=== PATIENT | female | born 1950 | race Caucasian/White ===

== ENCOUNTER 2020-11-12 11:28 | Outpatient (CLI) | payer MEDICARE, SELFPAY ==
[2020-11-12 11:36] VITALS: BP 92/61; PULSE 75; RESP 16; TEMP 36.8; O2SAT 95
[2020-11-12 12:25] VITALS: BP 81/53; PULSE 69; O2SAT 98
[2020-11-12 12:59] VITALS: BP 88/59; PULSE 67; TEMP 36.8; O2SAT 99
== END 2020-11-12 11:29 | disposition home or self-care (01) ==
LOC: OPS 11:32
PROVIDERS: Visit Provider Nurse Practitioner Family
DX: U07.1 COVID-19 (principal)
CPT/HCPCS: 87426; 96365

== ENCOUNTER → 2022-08-22 09:23 | Outpatient (BNVA) | payer MEDICARE, SELFPAY | PROVIDERS: PCP Family Medicine; Referring Provider Psychiatry & Neurology Neurology; Visit Provider Psychiatry & Neurology Neurology | DX: R51.9 Headache, unspecified (principal); M25.511 Pain in right shoulder; R25.2 Cramp and spasm; R29.898 Other symptoms and signs involving the musculoskeletal system; H53.40 Unspecified visual field defects | CPT/HCPCS: 99203 ==

== ENCOUNTER → 2022-08-29 10:04 | Outpatient (BNVA) | payer MEDICARE, SELFPAY | PROVIDERS: PCP Family Medicine; Visit Provider Psychiatry & Neurology Neurology | DX: R56.9 Unspecified convulsions (principal); R51.9 Headache, unspecified; F03.90 Unspecified dementia, unspecified severity, without behavioral disturbance, psychotic disturbance, mood disturbance, and anxiety | CPT/HCPCS: 36415; 80076; 80164; 85025; 95812; 95813 ==

== ENCOUNTER → 2022-10-17 14:24 | Outpatient (BNVA) | payer MEDICARE, SELFPAY | PROVIDERS: PCP Family Medicine; Visit Provider Psychiatry & Neurology Neurology | DX: R51.9 Headache, unspecified (principal); R26.81 Unsteadiness on feet; R25.2 Cramp and spasm; R53.1 Weakness; M25.511 Pain in right shoulder; H53.9 Unspecified visual disturbance | CPT/HCPCS: 99212 ==

== ENCOUNTER → 2023-01-22 13:44 | Outpatient (BNVA) | payer MEDICARE, SELFPAY | PROVIDERS: PCP Family Medicine; Visit Provider Psychiatry & Neurology Neurology | DX: R51.9 Headache, unspecified (principal); R26.81 Unsteadiness on feet | CPT/HCPCS: 99212 ==

== ENCOUNTER 2023-05-03 11:36 | Observation (INO) | payer MEDICARE, SELFPAY ==
[2023-05-03] VITALS (7 sets, daily range): BP systolic 142–179; BP diastolic 81–108; PULSE 59–67; RESP 16–18; TEMP 36.4–36.8; O2SAT 95–98; BMI 21.2
--- NOTE | 2023-05-03 11:50 | CT_ITS ---
WS: [id number] CT HEAD NONCONTRAST HISTORY: AMS TECHNIQUE: Contiguous axial imaging performed through the brain in 2.5 mm imaging. Bone and soft tiss ue windows. Sagittal and coronal reformats reviewed. All CT scans at [facility] use at least one of these dose optimization techniques: automated exposure control; mA and/or kV adjustment per pa tient size (includes targeted exams where dose is matched to clinical indication); or iterative recon struction. DLP: 996.08 mGy.cm COMPARISON: 11/06/2013 There is increased serpiginous density in the posterior LEFT occipital lobe cortex with adjacent volu me loss. These findings are new since the prior study from 2013. There is no midline shift. Mild diffuse atrophy and small vessel ischemic disease with progression since 2013. Ventricles: Normal size with no hydrocephalus. No inferior displacement of the cerebellar tonsils. Paranasal sinuses: As visualized are clear. Mastoid air cells: Well pneumatized. Calvarium and scalp: Skull is intact with no soft tissue edema or swelling. IMPRESSION: 1. Serpiginous increased attenuation in the cortex of the LEFT occipital lobe with adjacent volume l oss. I favor this is probably gyral calcification in an area of prior infarct but a small amount acut e blood may appear similar. Recommend follow-up MRI brain with and without contrast. 2. Mild diffuse atrophy and small vessel ischemic disease.
--- NOTE | 2023-05-03 11:51 | ECG_ITS ---
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 Measurements Intervals [place] Rate: 59 P: 52 HI: 106 QRS: 44 QRSD: 82 T: 62 QT: 393 QTc: 392 Interpretive Statements SINUS BRADYCARDIA WITH SHORT HI INTERVAL LOW QRS VOLTAGE IN PRECORDIAL LEADS [QRS DEFLECTION < 1.0 mV IN CHEST LEADS] No previous ECG available for comparison Electronically Signed On 05-03-2023 16:02:38 MACHINE PRESSER by Kel Rich M.D. [id number]
--- NOTE | 2023-05-03 11:53 | ED_ITS ---
HPI - Altered Mental Status 2 General: Chief Complaint: ER Hold Stated Complaint: neuro troubles Time Seen by Provider: 05/03/23 11:50 Source: patient Mode of arrival: ambulatory History of Present Illness: 72-year-old female with a rather complic ated past history several years ago she was seen with an episode like today's where she was just staring out the space and seemed confused that was eventually thought to be a seizure she had initially been admitted at [place] [place] and then transferred to [facility] in [place] at that time he was started on Keppra she did not had seizures prior to that she has a history of Parkinson's as well. She was recently started on Topamax for headaches. The day after Ozzie in 2022 the patient was admitted to [facility] and was there for 30 days she had progressively gotten worse. She eventually went through recovery period and was discharged home today she is having another episode of having taken 2 doses of Topamax she is staring off into space she does respond but is slow to respond she must directly address her she does not spontaneously join or participate in conversations. She is having difficulty with ambulation according to her which she normally had not been at the time of discharge when she is discharged 4 days ago. She denies chest or abdominal pain. No recent fever sweats or chills no dysuria urgency or frequency she has had some incontinence which is not particularly unusual for her. complaint: confusion Review of Systems 2 Const: Denies: fever(s) or chills Card: Denies: chest pain Resp: Denies: dyspnea GI: Denies: abdominal pain : Denies: dysuria, urinary frequency or urinary urgency Musc: Denies: neck pain or back pain Skin/Breast: Denies: rash PFSH ED 2 PFSH: Medical History Dementia Surgical History Knee joint replacement status History of hip surgery Family History Father Alzheimer disease Social History Smoking and tobacco/nicotine status: never used tobacco/nicotine Alcohol intake: never Substance/Drug Use: never Physical Exam 2 Const: COMMON NORMALS: no acute distress GENERAL APPEARANCE: cooperative and comfortable ORIENTATION/CONSCIOUSNESS: Yes awake, Yes oriented to person, Yes oriented to place and Yes oriented to time HENMT: COMMON NORMALS: normocephalic, atraumatic and hearing grossly normal bilaterally HEAD & SCALP: normocephalic and atraumatic Resp: COMMON NORMALS: normal respiratory effort, No retractions, No use of accessory muscles and clear to auscultation bilaterally AUSCULTATION: clear to auscultation bilaterally Cardio: COMMON NORMALS: regular rate, regular rhythm and No murmurs present (Cardio) RATE: regular rate RHYTHM: regular rhythm GI: COMMON NORMALS: Soft to palpation and No hepatosplenomegaly present A USCULTATION: Yes normoactive bowel sounds PALPATION: Yes Soft to palpation, No Tenderness to palpation present (GI), No Guarding due to palpation present (GI) and Yes No hepatosplenomegaly present Extremity: COMMON NORMALS: normal to inspection, capillary refill normal, no clubbing, cyanosis or edema, no calf tenderness and no pedal edema Neuro: SENSORIUM/ORIENTATION: Yes oriented to person, Yes oriented to place and Yes oriented to time Skin: COMMON NORMALS: no rashes or lesions noted GENERAL SKIN EXAM: no rashes or lesions noted Course 2 Vital Signs: Vital signs: Vital Signs Temperature 97.7 F 05/08/23 04:00 Pulse Rate 80 05/08/23 06:00 Respiratory Rate 16 05/08/23 04:00 Blood Pressure 119/72 05/08/23 04:00 Pulse Oximetry 96 05/08/23 04:00 Oxygen Delivery Me thod Room Air 05/07/23 16:00 MDM - Altered Mental Status Medical Decision Making Pt has R sided weakness which states is new over last few day. Possible seizure activity. Unable to ambulate. Discussed case with Dr. Sun recommendations including increasing Keppra and Sinemet. We initially had talked about possible discharge home but patient is unable to even ambulate or get out of bed. 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 Will admit, discussed with hospitalist orders written Lab Data 05/04/23 07:10 05/04/23 05:27 Laboratory Results WBC 6.84 10^3/uL (3.29-11.43) 05/03/23 12: RBC 3.96 10^6/uL (3.85-5.65) 05/03/23 12:27 Hgb 12.80 g/dL (11.27-16.99) 05/03/23 12:27 Hct 40.2 % (36-47) 05/03/23 12:27 MCV 101.5 fl (85-98) H 05/03/23 12:27 MCH 32.3 pg (27-33) 05/03/23 12:27 MCHC 31.8 g/dL (30-55) 05/03/23 12:27 RDW 13.7 % (12.1-15.1) 05/03/23 12: Plt Count 216 10^3/cmm (157-399) 05/03/23 12: MPV 9.0 fL (7.4-10.4) 05/03/23 12: Neut % (Auto) 54.6 % 05/03/23 12: Lymph % (Auto) 31.0 % 05/03/23 12:27 Boyle % (Auto) 9.5 % 05/03/23 12:27 Eos % (Auto) 3.4 % 05/03/23 12:27 Baso % (Auto) 0.9 % 05/03/23 12: Neut # (Auto) 3.74 10^3/uL (1.8-7.7) 05/03/23 12: Lymph # (Auto) 2.1 10^3/uL (0.8-4.8) 05/03/23 12:27 Boyle # (Auto) 0.7 10^3/uL (0.2-0.9) 05/03/23 12:27 Eos # (Auto) 0.2 10^3/uL (0.0-0.8) 05/03/23 12:27 Baso # (Auto) 0.1 10^3/uL (0.0-0.1) 05/03/23 12:27 Nucleated RBC % (auto) 0 % 05/03/23 12:27 Nucleated RBCs # 0.0 /100WBC 05/03/23 12:27 Sodium 137 mmol/L (136-145) 05/03/23 12:27 Potassium 4.0 mmol/L (3.5-5.1) 05/03/23 12:27 Chloride 102 mmol/L (98-107) 05/03/23 12:27 Carbon Dioxide 23 mmol/L (22-29) 05/03/23 12:27 Anion Gap 16.0 (5-19) 05/03/23 12:27 BUN 20 mg/dL (8-23) 05/03/23 12:27 Creatinine 1.2 mg/dL (0.5-0.9) H 05/03/23 12:27 GFR Calculation Not Reportable 05/03/23 12:27 Glucose 86 mg/dL (65-115) 05/03/23 12:27 Calculated Osmolality 286 mOsm/kg (285-295) 05/03/23 12:27 Calcium 9.4 mg/dL (8.5-10.5) 05/03/23 12:27 Total Bilirubin 0.4 mg/dL (0.15-1.2) 05/03/23 12:27 AST 17 U/L (0-32) 05/03/23 12:27 ALT < 5 U/L (0-33) 05/03/23 12:27 Alkaline Phosphatase 72 U/L (35-105) 05/03/23 12:27 Ammonia 25 umol/L (11-51) 05/03/23 14:49 Creatine Kinase 49 U/L (26-192) 05/03/23 12:27 Total Protein 7.2 g/dL (6.6-8.7) 05/03/23 12:27 Albumin 4.0 g/dL (3.5-5.2) 05/03/23 12:27 Globulin 3.2 g/dL (1.3-4.6) 05/03/23 12:27 Urine Color Yellow (Yellow) 05/03/23 12:33 Urine Appearance Clear (CLEAR) 05/03/23 12:33 Urine pH 6.5 (5-7) 05/03/23 12:33 Ur Specific Brothers 1.015 (1.005-1.030) 05/03/23 12:33 Urine Protein Neg (Negative) 05/03/23 12:33 Urine Glucose (UA) Norm (Normal) 05/03/23 12:33 Urine Ketones Negative (Negative) 05/03/23 12:33 Urine Blood Neg (Negative) 05/03/23 12:33 Urine Nitrate Negative (Negative) 05/03/23 12:33 Urine Bilirubin Neg (Negative) 05/03/23 12:33 Urine Urobilinogen 1 mg/dL (Negative) H 05/03/23 12:33 Ur Leukocyte Esterase Negative (Negative) 05/03/23 12:33 Valproic Acid 72.1 ug/mL (50-100) 05/03/23 12:27 Levetiracetam 28.4 mcg/mL (6.0-46.0) 05/03/23 12:27 All radiology interpretation(s) finalized by discharge Discharge Plan Discharge Patient Disposition: Admitted As Inpatient Admit Provider: Amalia Blackwell Clinical Impression: CVA (cerebrovascular accident), Weakness of right leg, Dementia, On-off phenomenon during therapy for parkinsonism, Parkinson disease Condition: Stable Coding Level of Care Code ED Electrical Tryout Person for Fili Lao
[2023-05-03 12:35] LABS: Basophils # 0.1 10^3/uL (0.0-0.1); Basophils % 0.9 %; Eosinophils # 0.2 10^3/uL (0.0-0.8); Eosinophils % 3.4 %; Hematocrit 40.2 % (36-47); Lymphocytes # 2.1 10^3/uL (0.8-4.8); Mean Corpuscular HGB Conc 31.8 g/dL (30-55); Mean Corpuscular Hemoglobin 32.3 pg (27-33); Mean Corpuscular Volume 101.5 fl (85-98); Monocytes # 0.7 10^3/uL (0.2-0.9); Monocytes % 9.5 %; Neutrophils # 3.74 10^3/uL (1.8-7.7); Neutrophils % 54.6 %; Nucleated Red Blood Cells % 0 %; Platelet Count 216 10^3/cmm (157-399); Red Blood Count 3.96 10^6/uL (3.85-5.65); Red Cell Distribution Width 13.7 % (12.1-15.1); White Blood Count 6.84 10^3/uL (3.29-11.43)
[2023-05-03 12:42] LABS: Add Urine Microscopic? NO; Charge for UA Resulting for Rev
[2023-05-03 12:53] LABS: Alanine Aminotransferase < 5 U/L (0-33); Alkaline Phosphatase 72 U/L (35-105); Aspartate Amino Transferase 17 U/L (0-32); Blood Urea Nitrogen 20 mg/dL (8-23); Calcium 9.4 mg/dL (8.5-10.5); Carbon Dioxide 23 mmol/L (22-29); Chloride 102 mmol/L (98-107); Creatine Phosphokinase 49 U/L (26-192); Globulin 3.2 g/dL (1.3-4.6); Glucose 86 mg/dL (65-115); Osmolality Calculated 286 mOsm/kg (285-295); Sodium 137 mmol/L (136-145); Total Bilirubin 0.4 mg/dL (0.15-1.2); Total Protein 7.2 g/dL (6.6-8.7)
[2023-05-03 12:57] LABS: Bilirubin Urine Neg (Negative); Blood Urine Neg (Negative); Glucose Urine UA Norm (Normal); Ketones Urine Negative (Negative); Leukocyte Esterase Urine Negative (Negative); Nitrate Urine Negative (Negative); Protein Urine Neg (Negative); Specific Gravity, Urine 1.015 (1.005-1.030); Urine Appearance Clear (CLEAR); Urine Color Yellow (Yellow); Urobilinogen Urine 1 mg/dL (Negative); pH Urine 6.5 (5-7)
[2023-05-03] MEDS: acetaminophen 325 mg Tablet 650 MG PO (13:45)
--- NOTE | 2023-05-03 14:35 | PC.PHAR ---
SPOUSE STATES PT HAS BEEN ON THE KEPPRA 1000 MG FOR MANY YEARS. NEW DR REDUCED TO 500 MG.
[2023-05-03 14:55] LABS: Valproic Acid Level 72.1 ug/mL (50-100)
[2023-05-03 15:29] LABS: Ammonia 25 umol/L (11-51)
[2023-05-03] MEDS: levETIRAcetam 1,000 MG/100 ML PREMIX 400 MG IV (17:37)
--- NOTE | 2023-05-03 18:44 | PM.HP ---
Providers/Chief Complaint Admitting Physician: Amalia Blackwell MD Primary Care Provider: Mack Easley MD Chief Complaint: neuro troubles History of Present Illness Tricia Acuña is a 72 year old female who was dc'd from [facility] from [place] on Sunday came back for leg weakness. No signs of stroke, pt has parkinsons and takes sinemet bid along keppra for hx of seizure, she did not require oxygen for her Covid pneumonia, she was seen by a neurologist for concern of SAH, her CT head changes were related to calcifications is very concerned however her symptoms does not seem to be new, he was at [facility] for similar complaint when she was diagnosed with COVID-19, she spent 2 to 3 weeks in inpatient rehab, she has been kept on twice a day Sinemet regimen, no fever nausea vomiting chest pain endorsed by the patient Review of Systems General: Reports: ROS unobtainable due to medical condition Medications/Allergies Home Medications Medication Instructions Recorded Confirmed Last Taken Type levothyroxine 50 mcg tablet 50 mcg PO DAILY 08/22/22 05/03/23 05/03/23 History (Levo-T) propranolol 20 mg tablet 20 mg PO BID 08/22/22 05/03/23 05/02/23 History rimegepant 75 mg disintegrating 75 mg PO .as needed #8 tabs 02/07/23 05/03/23 Unknown Rx tablet (Nurtec ODT) carbidopa ER 25 mg-levodopa 100 mg 1 tab PO BID 05/03/23 05/03/23 05/03/23 History tablet,extended release cholecalciferol (vitamin D3) 50 50 mcg PO DAILY 05/03/23 05/03/23 05/03/23 History mcg (2,000 unit) capsule (Vitamin D3) cyanocobalamin (vitamin B-12) 1,000 mcg sublingual DAILY 05/03/23 05/03/23 05/03/23 History 1,000 mcg sublingual tablet divalproex 500 mg tablet,delayed 1,000 mg PO QPM 05/03/23 05/03/23 05/02/23 History release famotidine 20 mg tablet 20 mg PO BID 05/03/23 05/03/23 Unknown History levetiracetam 500 mg tablet 500 mg PO BID 05/03/23 05/03/23 05/03/23 History multivitamin 1 tab PO DAILY 05/03/23 05/03/23 05/03/23 History tizanidine 4 mg tablet 8 mg PO QPM 05/03/23 05/03/23 05/02/23 History topiramate 50 mg tablet 20 mg PO BID 05/03/23 05/03/23 05/03/23 History Allergies Allergy/AdvReac Type Severity Reaction Status Date / Time promethazine [From Phenergan] Allergy ADR-Seizure Verified 05/03/23 11:47 PFSH Acute PFSH: Medical History Dementia Surgical History Knee joint replacement status History of hip surgery Family History Father Alzheimer disease Social History Smoking and tobacco/nicotine status: never used tobacco/nicotine Alcohol intake: never Substance/Drug Use: never Vitals/I&O/Wt Last Vital Signs Temp 98.1 F 05/03/23 18:08 Pulse 66 05/03/23 18:08 Resp 16 05/03/23 18:08 BP 179/108 05/03/23 18:08 Pulse Ox 98 05/03/23 18:08 O2 Del Method Room Air 05/03/23 11:42 05/03/23 05/03/23 05/03/23 06:59 14:59 22:59 Intake Total 100 / 100 Balance 100 / 100 Weight last 48 hrs Weight 65.317 kg Weight 65.317 kg Physical Exam Narrative: Parkinsonian features Awake and alert Dehydrated Awake and alert Hypertensive Currently on room air Nonfocal neuroexam is at the bedside Data 05/03/23 12:27 05/03/23 12:27 A&P Assessment and plan (1) Visual field defect: (2) Right leg weakness: (3) Left temporal headache: (4) Dementia: (5) Gait instability: (6) On-off phenomenon during therapy for parkinsonism: Plan ON/Off Parkinson's phenomenon Change Sinemet to tid dose Inc keppra dose to 750mg bid Case discussed w Dr [place] Calification noted on CT head which are chronic Records seen from [facility] Start IV fluids May need NH placement Full code recent dx of covid 4 weeks ago Gi soft diety PT ordered Attestations Medical Necessity Statement*: Anticipating discharge within 48 hours Diagnoses Visual field defect H53.40 Right leg weakness R29.898 Left temporal headache R51.9 Dementia F03.90 Gait instability R26.81 On-off phenomenon during therapy for parkinsonism G20.C; T42.8X5A
[2023-05-03] MEDS: sodium chloride 0.9% 1,000 ML 75 ML IV (21:13)
[2023-05-03] MEDS: carbidopa-levodopa 25-100mg Tablet 1 EACH PO (21:32)
[2023-05-04] VITALS (10 sets, daily range): BP systolic 121–145; BP diastolic 4–97; PULSE 60–99; RESP 14–18; TEMP 36.4–36.7; O2SAT 96–99; BMI 21.2
[2023-05-04 05:57] LABS: Blood Urea Nitrogen 21 mg/dL (8-23); C Reactive Protein 4.3 mg/L (0.0-4.9); Calcium 8.9 mg/dL (8.5-10.5); Carbon Dioxide 21 mmol/L (22-29); Chloride 108 mmol/L (98-107); Glucose 84 mg/dL (65-115); Magnesium 1.8 mg/dL (1.7-2.3); Osmolality Calculated 294 mOsm/kg (285-295); Sodium 141 mmol/L (136-145)
[2023-05-04 06:03] LABS: Anion Gap 16.3 (5-19); Potassium 4.3 mmol/L (3.5-5.1)
[2023-05-04 07:19] LABS: Basophils # 0.1 10^3/uL (0.0-0.1); Basophils % 0.6 %; Eosinophils # 0.3 10^3/uL (0.0-0.8); Eosinophils % 2.9 %; Hematocrit 37.4 % (36-47); Lymphocytes # 1.9 10^3/uL (0.8-4.8); Lymphocytes % 19.5 %; Mean Corpuscular HGB Conc 31.8 g/dL (30-55); Mean Corpuscular Hemoglobin 32.5 pg (27-33); Mean Corpuscular Volume 102.2 fl (85-98); Mean Platelet Volume 8.8 fL (7.4-10.4); Monocytes # 1.1 10^3/uL (0.2-0.9); Monocytes % 11.5 %; Neutrophils # 6.42 10^3/uL (1.8-7.7); Neutrophils % 65.1 %; Nucleated Red Blood Cells % 0 %; Platelet Count 191 10^3/cmm (157-399); Red Blood Count 3.66 10^6/uL (3.85-5.65); Red Cell Distribution Width 13.9 % (12.1-15.1); White Blood Count 9.88 10^3/uL (3.29-11.43)
[2023-05-04] MEDS: levothyroxine 50 mcg Tablet PO (08:33)
[2023-05-04] MEDS: carbidopa-levodopa 25-100mg Tablet 1 EACH PO ×3 (08:33→20:23)
[2023-05-04] MEDS: topiramate 25 mg Tablet 20 MG PO (08:33)
[2023-05-04] MEDS: levETIRAcetam 500 mg Tablet 750 MG PO ×2 (08:33→17:28)
[2023-05-04] MEDS: sodium chloride 0.9% 1,000 ML 75 ML IV (08:39)
[2023-05-04] MEDS: acetaminophen 500 mg Tablet PO ×2 (10:16→17:28)
--- NOTE | 2023-05-04 11:04 | PC.CHAP ---
Pastoral Care Encounter/Spiritual Assessment Type of Contact [] Declined foreign food specialty cook visit [] Patient/Family/Request visit [] Outpatient visit [] Follow-up visit [] Physician referral [] Code/Alert [x] Routine visit [] Staff referral [] Actively dying [] Patient sleeping [x] Family support [] [] Out of room [] Palliative care [] [] Receiving care in room [] Pre-surgical visit [] Trauma [] Long length of stay [] ICU visit [] Other: Relational/Emotional Strength [x] Patient feels connected with others/family/visitors/staff [] Distress [] Loneliness/isolation [] Abandonment Spirituality of Patient [x] Person of Ailyn [] Attends Tenriism of their Ailyn [x] Believes in Prayer [] Reads Bible or Orthodox materials [] There are Spiritual issues to be addressed Sheet Metal Technician Interventions [x] Prayer [x] Active listening [] Non-anxious presence [x] Spiritual/emotional support [] Crisis/trauma care [] Spiritual counseling [] Bereavement support [] Provided bereavement packet [] Provided Bible/devotional materials [] Provided toy/stuffed animal, coloring book to patient or family member [] Provided Communion [] Anointing/[place] [] Salvation [x] Completed spiritual assessment [] Other: Impact on Illness or Injury [] Angry [] Fearful [] Anxious [] Often cries [] Exhaustion [] Unable to work [] Unable to attend orthodoxy [] Unable to walk/stand [] Unable to read [] Unable to drive [] Unable to eat/drink [] Unable to sleep [] Unable to be with family [] Patient intubated [] Other: Summary Time spent with patient 5 min
--- NOTE | 2023-05-04 14:06 | PM.PN ---
Subjective Subjective: Patient and both want senior living placement Patient worked with PT Vitals/I&O/Wt Last Vital Signs Temp 98.0 F 05/04/23 11:38 Pulse 67 05/04/23 11:38 Resp 15 05/04/23 11:38 BP 121/73 05/04/23 11:38 Pulse Ox 96 05/04/23 11:38 O2 Del Method Room Air 05/04/23 11:38 05/03/23 05/04/23 05/04/23 22:59 06:59 14:59 Intake Total 100 / 100 1097.5 / 1097.5 Output Total 850 / 850 Balance -750 / -750 1097.5 / 1097.5 Weight last 48 hrs Weight 65.317 kg Weight 65.317 kg Weight 65.317 kg Physical Exam Narrative: Awake and alert Able to follow commands Much better as compared to yesterday Nonfocal neuroexam Currently on room air Pleasant cooperative Signs of Parkinson's present Data 05/04/23 07:10 05/04/23 05:27 A&P Assessment and plan (1) Visual field defect: (2) Right shoulder pain: (3) Left temporal headache: (4) On-off phenomenon during therapy for parkinsonism: (5) Dementia: (6) Gait instability: (7) Spasticity: Plan Patient will need senior living placement She has significant on and off phenomenon related to her Parkinson's I have increased the dose of parkinsonian medications along antiseizure Full code GI soft diet Discontinue IV fluids Well-hydrated Attestations Medical Necessity Statement*: Awaiting placement Diagnoses Visual field defect H53.40 Right shoulder pain M25.511 Left temporal headache R51.9 On-off phenomenon during therapy for parkinsonism G20.C; T42.8X5A Dementia F03.90 Gait instability R26.81 Spasticity R25.2
[2023-05-04] MEDS: divalproex DR 500 mg Tablet 1000 MG PO (17:28)
[2023-05-04] MEDS: topiramate 25 mg Tablet PO (17:28)
[2023-05-05] VITALS (7 sets, daily range): BP systolic 129–179; BP diastolic 79–91; PULSE 63–86; RESP 18–22; TEMP 36.3–36.7; O2SAT 90–98
[2023-05-05] MEDS: acetaminophen 500 mg Tablet PO ×2 (00:22→08:50)
[2023-05-05] MEDS: levETIRAcetam 500 mg Tablet 750 MG PO ×2 (08:49→18:17)
[2023-05-05] MEDS: carbidopa-levodopa 25-100mg Tablet 1 EACH PO ×3 (08:50→20:28)
[2023-05-05] MEDS: levothyroxine 50 mcg Tablet PO (08:50)
[2023-05-05] MEDS: topiramate 25 mg Tablet PO ×2 (08:50→18:17)
[2023-05-05] MEDS: TRAMadol 50 mg Tablet 25 MG PO (10:51)
[2023-05-05 11:39] LABS: Levetiracetam Immunoassy 28.4 mcg/mL (6.0-46.0)
--- NOTE | 2023-05-05 12:18 | P.PN_ITS ---
Subjective 2 Subjective: Patient is awaiting placement Doing much better Working with PT Vitals/I&O/Wt Last Vital Signs Temp 97.7 F 05/05/23 12:15 Pulse 86 05/05/23 12:15 Resp 22 H 05/05/23 12:15 BP 129/79 05/05/23 12:15 Pulse Ox 98 05/05/23 12:15 O2 Del Method Room Air 05/05/23 12:15 05/04/23 05/05/23 05/05/23 22:59 06:59 14:59 Intake Total 722.5 / 1820.0 236 / 236 Balance 722.5 / 1820.0 236 / 236 Weight last 48 hrs Weight 62.051 kg Weight 65.317 kg Weight 65.317 kg Physical Exam 2 Narrative: Patient is doing much better GCS 15 Awake and alert Working with PT Euvolemic Nonfocal neuroexam Data 05/04/23 07:10 05/04/23 05:27 A&P Assessment and plan (1) Visual field defect: (2) Right shoulder pain: (3) Right leg weakness: (4) On-off phenomenon during therapy for parkinsonism: (5) Left temporal headache: (6) Dementia: Plan Discharge on Sunday Doing well on 3 times daily Sinemet Attestations 2 Medical Necessity Statement*: Awaiting till Sunday Coding Level of Care Code Acute Code for g Fwd Diagnoses Visual field defect H53.40 Right shoulder pain M25.511 Right leg weakness R29.898 On-off phenomenon during therapy for parkinsonism G20.C; T42.8X5A Left temporal headache R51.9 Dementia F03.90
[2023-05-05] MEDS: TRAMadol 50 mg Tablet PO ×2 (14:52→20:32)
[2023-05-05] MEDS: divalproex DR 500 mg Tablet 1000 MG PO (18:17)
[2023-05-06] VITALS (8 sets, daily range): BP systolic 148–167; BP diastolic 82–98; PULSE 68–83; RESP 16–18; TEMP 36.4–36.6; O2SAT 96–98
[2023-05-06] MEDS: levothyroxine 50 mcg Tablet PO (08:28)
[2023-05-06] MEDS: acetaminophen 500 mg Tablet PO (08:28)
[2023-05-06] MEDS: levETIRAcetam 500 mg Tablet 750 MG PO ×2 (08:28→16:43)
[2023-05-06] MEDS: topiramate 25 mg Tablet PO ×2 (08:28→16:43)
[2023-05-06] MEDS: carbidopa-levodopa 25-100mg Tablet 1 EACH PO ×3 (08:28→20:37)
--- NOTE | 2023-05-06 12:57 | P.PN_ITS ---
Subjective 2 Subjective: Doing well Having a bowel movement Tolerating diet Vitals/I&O/Wt Last Vital Signs Temp 97.8 F 05/06/23 11:54 Pulse 68 05/06/23 11:54 Resp 16 05/06/23 11:54 BP 148/87 05/06/23 11:54 Pulse Ox 97 05/06/23 11:54 O2 Del Method Room Air 05/06/23 11:54 05/05/23 05/06/23 05/06/23 22:59 06:59 14:59 Intake Total 354 / 590 480 / 480 Balance 354 / 590 480 / 480 Weight last 48 hrs Weight 61.462 kg Weight 62.051 kg Physical Exam 2 Narrative: Acute PT GCS 15 On and off phenomenon No active worsening of Parkinson's GCS 15 S1, S2 Currently on room air Data 05/04/23 07:10 05/04/23 05:27 A&P Assessment and plan (1) Visual field defect: (2) Right shoulder pain: (3) Left temporal headache: (4) On-off phenomenon during therapy for parkinsonism: (5) Dementia: (6) Gait instability: (7) Spasticity: Plan Migraine headache improved Plan for placement on Sunday Parkinson's on and off normal, no acute exacerbation No change in medications today Tolerating diet, active bowel movement on daily basis Attestations 2 Medical Necessity Statement*: Continue medical management Diagnoses Visual field defect H53.40 Right shoulder pain M25.511 Left temporal headache R51.9 On-off phenomenon during therapy for parkinsonism G20.C; T42.8X5A Dementia F03.90 Gait instability R26.81 Spasticity R25.2
[2023-05-06] MEDS: TRAMadol 50 mg Tablet PO (15:15)
[2023-05-06] MEDS: divalproex DR 500 mg Tablet 1000 MG PO (16:43)
[2023-05-07] VITALS (9 sets, daily range): BP systolic 116–160; BP diastolic 72–89; PULSE 72–89; RESP 16–18; TEMP 36.5–36.9; O2SAT 95–97; BMI 20.8
[2023-05-07] MEDS: topiramate 25 mg Tablet PO ×2 (08:46→17:04)
[2023-05-07] MEDS: levothyroxine 50 mcg Tablet PO (08:46)
[2023-05-07] MEDS: carbidopa-levodopa 25-100mg Tablet 1 EACH PO ×3 (08:46→20:54)
[2023-05-07] MEDS: levETIRAcetam 500 mg Tablet 750 MG PO ×2 (08:46→17:04)
[2023-05-07] MEDS: TRAMadol 50 mg Tablet PO (08:46)
--- NOTE | 2023-05-07 11:21 | PM.DCS ---
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 (2) Right shoulder pain: Status: Acute (3) Left temporal headache: Status: Acute (4) On-off phenomenon during therapy for parkinsonism: Status: Acute (5) Dementia: Status: Acute (6) Gait instability: Status: Acute (7) Spasticity: Status: Acute Reason for Visit Reason for Visit: neuro troubles Hospital Course Hospital Course 72-year female with history of Parkinson's, was recently discharged from inpatient rehab at [facility] to the hospital for worsening of her rigidity lower extremity weakness, with suspected on and off phenomenon of Parkinson's her carbidopa levodopa Sinemet dose was increased to 3 times a day which improved her mobilization with PT, has been is wanting skilled nursing placement to continue PT We do suspect she will need further adjustment of medication will give her referral to see Dr. Lund in the clinic Patient remained afebrile hemodynamically stable, head CT showing calcification there is no concern for subarachnoid hemorrhage, these findings were present on CT head records of [facility], they consulted neurosurgery and deemed hyperdense findings on CT head without contrast related to vascular calcifications which are chronic changes. Patient is not showing any focal deficits on clinical exam. As per Dr. Sun neurology: Recommended increasing Sinemet to 3 times a day and increase of Keppra to 750 mg twice daily Despite this patient will still experience unpredictable response to the medication dosages, at this point her symptoms are not severe related unfortunately her Parkinson's is getting worse, I do not see any signs of extraparametal symptoms before discharge I do suspect patient will have on and off confusion, visual hallucination, lethargy, fatigue, on certain days Physical Exam Narrative: Signs of Parkinson's Pleasant cough Euvolemic Abdomen soft Currently doing well on room air Discharge Data Studies Completed and Pending Completed Studies During Hospitalization Category Date Time Status CT head wo con* [id number] Stat Cat Scan 05/03/23 11:50 Completed Laboratory Results WBC 9.88 10^3/uL (3.29-11.43) 05/04/23 07:10 Corrected WBC Cancelled 05/04/23 05:27 RBC 3.66 10^6/uL (3.85-5.65) L 05/04/23 07:10 Hgb 11.90 g/dL (11.27-16.99) 05/04/23 07:10 Hct 37.4 % (36-47) 05/04/23 07:10 MCV 102.2 fl (85-98) H 05/04/23 07:10 MCH 32.5 pg (27-33) 05/04/23 07:10 MCHC 31.8 g/dL (30-55) 05/04/23 07:10 RDW 13.9 % (12.1-15.1) 05/04/23 07:10 Plt Count 191 10^3/cmm (157-399) 05/04/23 07:10 MPV 8.8 fL (7.4-10.4) 05/04/23 07:10 Gran % Cancelled 05/04/23 05:27 Neut % (Auto) 65.1 % 05/04/23 07:10 Lymph % (Auto) 19.5 % 05/04/23 07:10 [place] % (Auto) 11.5 % 05/04/23 07:10 Eos % (Auto) 2.9 % 05/04/23 07:10 Baso % (Auto) 0.6 % 05/04/23 07:10 Neut # (Auto) 6.42 10^3/uL (1.8-7.7) 05/04/23 07:10 Lymph # (Auto) 1.9 10^3/uL (0.8-4.8) 05/04/23 07:10 [place] # (Auto) 1.1 10^3/uL (0.2-0.9) H 05/04/23 07:10 Eos # (Auto) 0.3 10^3/uL (0.0-0.8) 05/04/23 07:10 Baso # (Auto) 0.1 10^3/uL (0.0-0.1) 05/04/23 07:10 Absolute Gran (auto) Cancelled 05/04/23 05:27 Nucleated RBC % (auto) 0 % 05/04/23 07:10 Nucleated RBCs # 0.0 /100WBC 05/04/23 07:10 Sodium 141 mmol/L (136-145) 05/04/23 05:27 Potassium 4.3 mmol/L (3.5-5.1) 05/04/23 05:27 Chloride 108 mmol/L (98-107) H 05/04/23 05:27 Carbon Dioxide 21 mmol/L (22-29) L 05/04/23 05:27 Anion Gap 16.3 (5-19) 05/04/23 05:27 BUN 21 mg/dL (8-23) 05/04/23 05:27 Creatinine 1.1 mg/dL (0.5-0.9) H 05/04/23 05:27 GFR Calculation Not Reportable 05/04/23 05:27 Glucose 84 mg/dL (65-115) 05/04/23 05:27 Calculated Osmolality 294 mOsm/kg (285-295) 05/04/23 05:27 Calcium 8.9 mg/dL (8.5-10.5) 05/04/23 05:27 Magnesium 1.8 mg/dL (1.7-2.3) 05/04/23 05:27 Total Bilirubin 0.4 mg/dL (0.15-1.2) 05/03/23 12:27 AST 17 U/L (0-32) 05/03/23 12:27 ALT < 5 U/L (0-33) 05/03/23 12:27 Alkaline Phosphatase 72 U/L (35-105) 05/03/23 12:27 Ammonia 25 umol/L (11-51) 05/03/23 14:49 Creatine Kinase 49 U/L (26-192) 05/03/23 12:27 C-Reactive Protein 4.3 mg/L (0.0-4.9) 05/04/23 05:27 Total Protein 7.2 g/dL (6.6-8.7) 05/03/23 12:27 Albumin 4.0 g/dL (3.5-5.2) 05/03/23 12:27 Globulin 3.2 g/dL (1.3-4.6) 05/03/23 12:27 Urine Color Yellow (Yellow) 05/03/23 12:33 Urine Appearance Clear (CLEAR) 05/03/23 12:33 Urine pH 6.5 (5-7) 05/03/23 12:33 Ur Specific [place] 1.015 (1.005-1.030) 05/03/23 12:33 Urine Protein Neg (Negative) 05/03/23 12:33 Urine Glucose (UA) Norm (Normal) 05/03/23 12:33 Urine Ketones Negative (Negative) 05/03/23 12:33 Urine Blood Neg (Negative) 05/03/23 12:33 Urine Nitrate Negative (Negative) 05/03/23 12:33 Urine Bilirubin Neg (Negative) 05/03/23 12:33 Urine Urobilinogen 1 mg/dL (Negative) H 05/03/23 12:33 Ur Leukocyte Esterase Negative (Negative) 05/03/23 12:33 Valproic Acid 72.1 ug/mL (50-100) 05/03/23 12:27 Levetiracetam 28.4 mcg/mL (6.0-46.0) 05/03/23 12:27 Vitals Last Vital Signs Temp 98.0 F 05/07/23 08:00 Pulse 89 05/07/23 08:00 Resp 16 05/07/23 08:00 BP 151/89 05/07/23 08:00 Pulse Ox 96 05/07/23 08:00 O2 Del Method Room Air 05/07/23 08:00 Discharge Plan Discharge Patient Disposition: Home Condition: Stable Prescriptions: New levetiracetam 500 mg Tablet 750 mg PO BID Qty: 60 2RF Continued levothyroxine [Levo-T] 50 mcg tablet 50 mcg PO DAILY propranolol 20 mg tablet 20 mg PO BID Nurtec ODT 75 mg tablet,disintegrating 75 mg PO .as needed Qty: 8 3RF multivitamin Tablet 1 tab PO DAILY famotidine 20 mg tablet 20 mg PO BID Vitamin B-12 1,000 mcg Tablet, Sublingual 1,000 mcg SUBLINGUAL DAILY topiramate 50 mg tablet 20 mg PO BID Vitamin D3 50 mcg (2,000 unit) Capsule 50 mcg PO DAILY tizanidine 4 mg tablet 8 mg PO QPM divalproex 500 mg tablet,delayed release (DR/EC) 1,000 mg PO QPM Changed carbidopa-levodopa 25-100 mg tablet extended release 1 tab PO TID Qty: 90 2RF Discontinued levetiracetam 500 mg tablet 500 mg PO BID Discharge Orders: Discharge Order (Routine); Ordered 05/07/23 Ordered By: Amalia Blackwell Referrals: Mack Easley MD [Primary Care Provider] - Patient Instructions: Altered Mental Status (ED), Opioid Safety Discharge Attestations Time Spent in Discharge Care*: greater than 30 min Quality Metrics Clinical Quality Measures [ No reported AMI, CVA or VTE this stay] Coding Level of Care Code Acute Code for Chg Fwd Diagnoses Visual field defect H53.40 Right shoulder pain M25.511 Left temporal headache R51.9 On-off phenomenon during therapy for parkinsonism G20.C; T42.8X5A Dementia F03.90 Gait instability R26.81 Spasticity R25.2
[2023-05-07 12:08] LABS: SARS Covid-2 Antigen negative (Negative)
--- NOTE | 2023-05-07 12:42 | P.PN_ITS ---
Subjective 2 Subjective: Patient is more lethargic and fatigued Appreciate PT and OT recommendations I do not suspect CVA related changes Unfortunately suffering from worsening of parkinsonian features Vitals/I&O/Wt Last Vital Signs Temp 98.0 F 05/07/23 08:00 Pulse 89 05/07/23 08:00 Resp 16 05/07/23 08:00 BP 151/89 05/07/23 08:00 Pulse Ox 96 05/07/23 08:00 O2 Del Method Room Air 05/07/23 08:00 05/06/23 05/07/23 05/07/23 22:59 06:59 14:59 Intake Total 240 / 720 240 / 240 Balance 240 / 720 240 / 240 Weight last 48 hrs Weight 64.002 kg Weight 64.212 kg Weight 61.462 kg Physical Exam 2 Narrative: Fatigued and lethargic Able to follow commands Able to work with PT and OT however requiring maximal assist Abdomen soft Euvolemic Currently on room air Data 05/04/23 07:10 05/04/23 05:27 A&P Assessment and plan (1) Visual field defect: (2) Right leg weakness: (3) Left temporal headache: (4) Dementia: (5) Gait instability: Plan On and off phenomenon of Parkinson's Patient is taking Keppra, Depakote along with Sinemet I do suspect patient will get worsening of her symptoms down the road We are recommending jail placement for now Appreciate PT/OT recommendation Attestations 2 Medical Necessity Statement*: Discharge hopefully by tomorrow Coding Level of Care Code Acute Code for Chg Fwd Diagnoses Visual field defect H53.40 Right leg weakness R29.898 Left temporal headache R51.9 Dementia F03.90 Gait instability R26.81
[2023-05-07] MEDS: acetaminophen 500 mg Tablet PO (17:04)
[2023-05-07] MEDS: divalproex DR 500 mg Tablet 1000 MG PO (17:04)
[2023-05-08] VITALS (7 sets, daily range): BP systolic 115–148; BP diastolic 72–94; PULSE 73–96; RESP 16–18; TEMP 36.3–36.8; O2SAT 96–98
[2023-05-08] MEDS: levothyroxine 50 mcg Tablet PO (08:31)
[2023-05-08] MEDS: acetaminophen 500 mg Tablet PO ×2 (08:31→17:01)
[2023-05-08] MEDS: topiramate 25 mg Tablet PO ×2 (08:31→17:01)
[2023-05-08] MEDS: carbidopa-levodopa 25-100mg Tablet 1 EACH PO ×3 (08:31→20:30)
[2023-05-08] MEDS: levETIRAcetam 500 mg Tablet 750 MG PO (08:32)
--- NOTE | 2023-05-08 11:33 | PM.PN ---
Subjective Subjective: Patient is awaiting placement Patient does have chronic right-sided weakness with right-sided hemianopsia CT head findings are consistent with vascular calcifications she was evaluated by neurosurgeon for similar findings at [facility] no signs of subarachnoid hemorrhage these findings are chronic She does get migraine headache Vitals/I&O/Wt Last Vital Signs Temp 97.6 F 05/08/23 08:00 Pulse 73 05/08/23 08:00 Resp 16 05/08/23 08:00 BP 147/87 05/08/23 08:00 Pulse Ox 98 05/08/23 08:00 O2 Del Method Room Air 05/08/23 08:00 05/07/23 05/08/23 05/08/23 22:59 06:59 14:59 Intake Total 240 / 960 240 / 240 Output Total 300 / 300 Balance -60 / 660 240 / 240 Weight last 48 hrs Weight 63.049 kg Weight 64.002 kg Weight 64.212 kg Physical Exam Narrative: Pleasant cooperative Dehydration No new focal deficit Right-sided hemianopsia Right-sided weakness is chronic Patient has Parkinson's related movement initiation disorder No active rigidity or signs of extraparametal symptoms Data 05/04/23 07:10 05/04/23 05:27 A&P Assessment and plan (1) Visual field defect: (2) Right shoulder pain: (3) Right leg weakness: (4) Weakness of right leg: (5) Left temporal headache: (6) On-off phenomenon during therapy for parkinsonism: (7) On-off phenomenon during therapy for parkinsonism: (8) Dementia: (9) Gait instability: Plan Patient is awaiting for authorization to go to correction Unfortunately secondary to Parkinson's her symptoms would not improve significantly despite physical therapy She does have chronic right-sided weakness We have changed the dose of Sinemet which seems to be helping her symptoms for now I do not expect her to improve drastically from her baseline She was put on Keppra and Depakote by neurology I have increased the dose of Keppra on request with Dr. Sun which sometimes can cause more confusion and lethargy She also gets topiramate for her migraine headaches Attestations Medical Necessity Statement*: Hopeful discharge later versus tomorrow Diagnoses Visual field defect H53.40 Right shoulder pain M25.511 Right leg weakness R29.898 Left temporal headache R51.9 On-off phenomenon during therapy for parkinsonism G20.C; T42.8X5A Dementia F03.90 Gait instability R26.81
--- NOTE | 2023-05-08 15:38 | PC.NURSE ---
Pt tends to have worsening behavior compared to 2 days ago. She keeps repeating phrases such as 12 clips, I need 12 clips She is tearing up napkins and placing them on her head. She is having difficulty feeding herself or getting her cup to her mouth as she has been holding these things away from her instead of bringing them to her. She is able to do so after being instructed how. Pt keeps grabbing at the wall while sitting in the chair and is leaning more to her right side. All of which is new compared to 2 days ago. Patients is growing more concerned and says this is new behavior for her. I have informed Dr. Blackwell of this at 9:57am and again at 1537. No knew orders given at the moment.
--- NOTE | 2023-05-08 16:06 | CTR_ITS ---
PROCEDURE INFORMATION: Exam: CT Head Without Contrast Exam date and time: 05/08/2023 5:17 PM Age: 72 years old Clinical indication: Altered mental status/memory loss; Additional info: Change in loc TECHNIQUE: Imaging protocol: Computed tomography of the head without contrast. Radiation optimization: All CT scans at this facility use at least one of these dose optimization techniques: automated exposure control; mA and/or kV adjustment per patient size (includes targeted exams where dose is matched to clinical indication); or iterative reconstruction. COMPARISON: CT head wo con* [id number] 05/03/2023 12:52 PM RADIATION DOSE METRICS: Total DLP (mGy-cm): 1003 FINDINGS: Brain: No hemorrhage. No edema. Moderate diffuse cerebral atrophy and mild sequela of chronic small vessel ischemic disease. No mass effect. Cerebral ventricles: No ventriculomegaly. Paranasal sinuses: Visualized sinuses are unremarkable. No fluid levels. Mastoid air cells: Visualized mastoid air cells are well aerated. Bones/joints: Unremarkable. No acute fracture. Soft tissues: Unremarkable. CT/CT head wo con* [id number] IMPRESSION: No acute intracranial abnormality.
--- NOTE | 2023-05-08 16:08 | PC.NURSE ---
Per Dr. Blackwell, order for CT head wo contrast placed. See previous note.
[2023-05-08] MEDS: divalproex DR 500 mg Tablet 1000 MG PO (17:01)
[2023-05-09] VITALS: BP 123/81; PULSE 88; RESP 16; TEMP 36.7; O2SAT 100
[2023-05-09 04:00] VITALS: BP 113/76; PULSE 78; RESP 17; TEMP 36.5; O2SAT 98
[2023-05-09 05:48] VITALS: PULSE 98
[2023-05-09 08:38] VITALS: BP 140/86; PULSE 100; RESP 18; TEMP 36.4; O2SAT 98
[2023-05-09] MEDS: levothyroxine 50 mcg Tablet PO (10:28)
[2023-05-09] MEDS: carbidopa-levodopa 25-100mg Tablet 1 EACH PO (10:29)
[2023-05-09] MEDS: topiramate 25 mg Tablet PO (10:29)
--- NOTE | 2023-05-09 12:04 | P.PN_ITS ---
Subjective 2 Subjective: Patient was awaiting placement which has been resolved. will go to [facility] in [place] home seen in bed today. doing very well. states she feels improved. no headache/migrane today Continues to have chronic right-sided weakness with right-sided hemianopsia CT head findings are consistent with vascular calcifications she was evaluated by neurosurgeon for similar findings at [facility] no signs of subarachnoid hemorrhage these findings are chronic Medications: Reviewed: Yes Vitals/I&O/Wt Last Vital Signs Temp 97.6 F 05/09/23 08:38 Pulse 100 05/09/23 08:38 Resp 18 05/09/23 08:38 BP 140/86 05/09/23 08:38 Pulse Ox 98 05/09/23 08:38 O2 Del Method Room Air 05/09/23 08:38 05/08/23 05/09/23 05/09/23 22:59 06:59 14:59 Intake Total 360 / 840 480 / 480 Balance 360 / 840 480 / 480 Weight last 48 hrs Weight 136 lb Weight 139 lb Physical Exam 2 Narrative: Pleasant cooperative Dehydration No new focal deficit Right-sided hemianopsia Right-sided weakness is chronic Patient has Parkinson's related movement initiation disorder No active rigidity or signs of extraparametal symptoms Data 05/04/23 07:10 05/04/23 05:27 A&P Assessment and plan (1) Visual field defect: (2) Right shoulder pain: (3) Right leg weakness: (4) Weakness of right leg: (5) Left temporal headache: (6) On-off phenomenon during therapy for parkinsonism: (7) On-off phenomenon during therapy for parkinsonism: (8) Dementia: (9) Gait instability: Plan Patient has been authorized to [facility] [place] Unfortunately secondary to Parkinson's her symptoms would not improve significantly despite physical therapy She does have chronic right-sided weakness We have changed the dose of Sinemet which seems to be helping her symptoms for now I do not expect her to improve drastically from her baseline She was put on Keppra and Depakote by neurology I have increased the dose of Keppra on request with Dr. Sun which sometimes can cause more confusion and lethargy Attestations 2 Medical Necessity Statement*: discharge today Coding Level of Care Code 61086 Diagnoses Visual field defect H53.40 Right shoulder pain M25.511 Right leg weakness R29.898 Left temporal headache R51.9 On-off phenomenon during therapy for parkinsonism G20.C; T42.8X5A Dementia F03.90 Gait instability R26.81
[2023-05-09 12:30] VITALS: BP 137/88; PULSE 86; RESP 16; TEMP 37.1; O2SAT 98
--- NOTE | 2023-05-09 13:28 | PC.NURSE ---
Report called to Julienne at [facility].
[2023-05-09 14:38] VITALS: BP 137/88; PULSE 86; RESP 16; TEMP 37.1; O2SAT 98
== END 2023-05-09 13:30 | disposition skilled nursing facility (03) ==
LOC: ER 12:11 → MEDSURG 18:27 → ER IP 05-04 12:31 → MEDSURG 05-04 12:31
PROVIDERS: Admitting Provider Internal Medicine; Emergency Provider Family Medicine; PCP Family Medicine; Visit Provider Family Medicine
DX: H53.40 Unspecified visual field defects (principal); M25.511 Pain in right shoulder; R29.898 Other symptoms and signs involving the musculoskeletal system; R51.9 Headache, unspecified; G20.C Parkinsonism, unspecified; T42.8X5A Adverse effect of antiparkinsonism drugs and other central muscle-tone depressants, initial encounter; F03.90 Unspecified dementia, unspecified severity, without behavioral disturbance, psychotic disturbance, mood disturbance, and anxiety; R26.81 Unsteadiness on feet; E86.0 Dehydration; Z86.16 Personal history of COVID-19
CPT/HCPCS: 36415; 70450; 80048; 80053; 80164; 80177; 81003; 82140; 82550; 83735; 85025; 86140; 87426; 93005; 96365; 97110; 97116; 97162; 97167; 97530; 97535; 99285; G0378; J1953; J7030; Q3014

== ENCOUNTER → 2023-05-29 12:59 | Outpatient (BNVA) | payer MEDICARE, SELFPAY | PROVIDERS: PCP Family Medicine; Visit Provider Psychiatry & Neurology Neurology | DX: G20.C Parkinsonism, unspecified (principal); R13.10 Dysphagia, unspecified; R25.2 Cramp and spasm; H51.9 Unspecified disorder of binocular movement; R26.9 Unspecified abnormalities of gait and mobility | CPT/HCPCS: 99212 ==